=== PATIENT | male | born 1970 | race African-American/Black ===

== ENCOUNTER 2022-09-08 14:41 | Inpatient (IN) | payer MEDICARE, MEDICAID ==
[2022-09-08] MEDS ORDERED: Calcium Carbonate 500 MG ChewTAB PO PRN (15:21)
[2022-09-08] MEDS ORDERED: Senokot S 8.6-50 MG TAB PO PRN (15:21)
[2022-09-08] MEDS ORDERED: Ondansetron PF 4 MG/2 ML Vial IVP PRN (15:21)
[2022-09-08] MEDS ORDERED: Dextrose 50% Abboject 50 ML SYRINGE SLOW IVP PRN (15:45)
[2022-09-08] MEDS ORDERED: Dextrose 5% in Water 1,000 ML IV PRN (15:45)
[2022-09-08 16:03] LABS: CKMB 4.1 ng/mL (0-6.6)
[2022-09-08] MEDS ORDERED: Ipratropium/Albuterol 3 ML NEB NEB PRN (16:56)
[2022-09-08] MEDS ORDERED: hydrALAZINE 20 MG/ML VIAL SLOW IVP PRN (16:56)
[2022-09-08] MEDS ORDERED: Furosemide 20 MG/2 ML VIAL SLOW IVP SCH (17:00)
[2022-09-08] MEDS ORDERED: Diltiazem 125 MG/25 ML ONE (17:54)
[2022-09-08] MEDS ORDERED: Furosemide 20 MG/2 ML VIAL ONE (18:18)
[2022-09-08 20:19] VITALS: BMI 48.4
[2022-09-08] MEDS ORDERED: Metoprolol Tartrate 5 MG/5 ML VIAL IVP SCH (20:45)
[2022-09-08 21:11] LABS: Troponin I 0.166 ng/mL (< 0.028)
[2022-09-08 21:25] LABS: Anion Gap 14 mmol/L (10-20); BUN (Urea Nitrogen) 18 mg/dL (8.4-25.7); Calc. Creatinine Clearance 144 mL/min (70-130); Calcium 9.3 mg/dL (7.8-10.44); Carbon Dioxide 22 mmol/L (22-29); Chloride 103 mmol/L (98-107); Estimated GFR 70; Glucose 360 mg/dL (70-105); Magnesium 1.9 mg/dL (1.6-2.6); Sodium 135 mmol/L (136-145)
[2022-09-08] MEDS: HumaLOG 300 UNITS/3 ML VIAL SC PRN (21:44)
[2022-09-08] MEDS ORDERED: Magnesium 2 GM/50 ML(in water) 2 GM in Premix Bag 1 BAG IVPB SCH (22:00)
[2022-09-08] MEDS: Acetaminophen 325 MG TAB PO PRN (22:44)
[2022-09-08 23:09] LABS: SARS-CoV-2 NAA Rapid Test Not Detected (NotDetected)
[2022-09-08] MEDS: Diltiazem 125 MG in Sodium Chloride 0.9% 100 ML IVPB SCH (23:24)
[2022-09-08 23:25] LABS: Troponin I 0.161 ng/mL (< 0.028)
[2022-09-09] MEDS: Furosemide 20 MG/2 ML VIAL SLOW IVP SCH ×2 (05:22→13:59)
[2022-09-09] MEDS: HumaLOG 300 UNITS/3 ML VIAL SC PRN ×4 (05:44→21:09)
[2022-09-09] MEDS: Diltiazem 125 MG in Sodium Chloride 0.9% 100 ML IVPB SCH ×2 (05:45→18:35)
[2022-09-09 06:31] LABS: #Basophils 0.1 thou/uL (0.0-0.2); #Eosinphils 0.1 thou/uL (0.0-0.7); #Neutrophils 5.1 thou/uL (1.40-6.50); %Basophils 0.7 % (0.0-1.0); %Eosinophils 1.1 % (0.0-10.0); %Lymphocytes 32.3 % (21.0-51.0); %Neutrophils 54.9 % (42.0-75.0); Hemoglobin 13.8 g/dL (14.0-18.0); Mean Corpuscular HGB CONC 33.6 g/dL (32.0-36.0); Mean Corpuscular Hemoglobin 32.1 pg (27.0-31.0); Mean Corpuscular Volume 95.7 fl (78.0-98.0); Mean Platelet Volume 9.9 fL (7.4-10.4); Platelet Count 149 10x3/uL (130-400); RBC Distribution Width 12.6 % (11.5-14.5); Red Blood Cell (RBC) Count 4.28 mill/uL (4.70-6.10); White Blood Cell (WBC) Count 9.3 10x3/uL (4.8-10.8)
[2022-09-09 07:20] LABS: Hemoglobin A1c 10.1 % (4.0-6.0)
[2022-09-09 07:21] LABS: ALT (SGPT) 44 U/L (8-55); AST (SGOT) 24 U/L (5-34); Albumin 3.9 g/dL (3.5-5.0); Alkaline Phosphatase 100 U/L (40-110); BUN (Urea Nitrogen) 16 mg/dL (8.4-25.7); Bilirubin, Total 0.7 mg/dL (0.2-1.2); Calc. Creatinine Clearance 155 mL/min (70-130); Calcium 9.5 mg/dL (7.8-10.44); Carbon Dioxide 26 mmol/L (22-29); Cardiac Risk 2.6 (Less than 4.5); Chloride 101 mmol/L (98-107); Cholesterol 122 mg/dl (< 200 Desired); Estimated GFR 77; Globulin 2.8 g/dL (2.4-3.5); Glucose 234 mg/dL (70-105); HDL Cholesterol 47 mg/dL (>60 Neg Risk); LDL Cholesterol, Calculated 59 mg/dL; Potassium 3.5 mmol/L (3.5-5.1); Protein, Total 6.7 g/dL (6.0-8.3); Sodium 138 mmol/L (136-145); Triglycerides 80 mg/dL (Less than 150)
[2022-09-09 13:20] LABS: Anion Gap 15 mmol/L (10-20)
[2022-09-09] MEDS ORDERED: Carvedilol 6.25 MG TAB PO SCH (14:15)
[2022-09-09] MEDS ORDERED: Metoprolol Tartrate 25 MG TAB PO SCH (14:15)
[2022-09-09] MEDS ORDERED: Furosemide 20 MG/2 ML VIAL SLOW IVP SCH (16:00)
[2022-09-09] MEDS: Carvedilol 6.25 MG TAB PO SCH (16:34)
[2022-09-09] MEDS: Dronedarone HCl 400 MG TAB PO SCH (16:34)
[2022-09-09] MEDS ORDERED: Metoprolol Tartrate 50 MG TAB PO SCH (21:00)
[2022-09-09] MEDS: Insulin Glargine 30 UNITS/0.3 ML VIAL SC SCH (21:08)
[2022-09-09] MEDS: Atorvastatin Calcium 40 MG TAB PO SCH (21:08)
[2022-09-10] MEDS: Furosemide 20 MG/2 ML VIAL SLOW IVP SCH (06:01)
[2022-09-10] MEDS: HumaLOG 300 UNITS/3 ML VIAL SC PRN ×4 (06:02→21:06)
[2022-09-10 07:12] LABS: #Eosinphils 0.1 thou/uL (0.0-0.7); #Lymphocytes 3.5 thou/uL (1.20-3.40); #Neutrophils 6.1 thou/uL (1.40-6.50); %Basophils 0.4 % (0.0-1.0); %Eosinophils 1.2 % (0.0-10.0); %Lymphocytes 32.2 % (21.0-51.0); %Monocytes 9.6 % (0.0-10.0); %Neutrophils 56.6 % (42.0-75.0); Mean Corpuscular HGB CONC 33.3 g/dL (32.0-36.0); Mean Corpuscular Hemoglobin 32.2 pg (27.0-31.0); Mean Corpuscular Volume 96.5 fl (78.0-98.0); Mean Platelet Volume 10.1 fL (7.4-10.4); Platelet Count 163 10x3/uL (130-400); RBC Distribution Width 12.7 % (11.5-14.5); Red Blood Cell (RBC) Count 4.36 mill/uL (4.70-6.10); White Blood Cell (WBC) Count 10.7 10x3/uL (4.8-10.8)
[2022-09-10 07:33] LABS: Anion Gap 17 mmol/L (10-20); BUN (Urea Nitrogen) 23 mg/dL (8.4-25.7); Calc. Creatinine Clearance 101 mL/min (70-130); Calcium 9.2 mg/dL (7.8-10.44); Carbon Dioxide 25 mmol/L (22-29); Chloride 101 mmol/L (98-107); Estimated GFR 46; Glucose 167 mg/dL (70-105); Magnesium 1.9 mg/dL (1.6-2.6); Potassium 3.9 mmol/L (3.5-5.1); Sodium 139 mmol/L (136-145)
[2022-09-10] MEDS: Dronedarone HCl 400 MG TAB PO SCH ×2 (07:33→17:29)
[2022-09-10] MEDS: Carvedilol 6.25 MG TAB PO SCH ×2 (07:33→17:29)
[2022-09-10 07:48] LABS: Free T4 (Free Thyroxine) 1.25 ng/dL (0.70-1.48); Thyroid Stimulating Hormone 2.025 uIU/mL (0.35-4.94)
[2022-09-10] MEDS: Insulin Glargine 30 UNITS/0.3 ML VIAL SC SCH ×2 (08:32→21:06)
[2022-09-10] MEDS: hydrALAZINE 25 MG TAB PO SCH ×2 (15:50→20:07)
[2022-09-10 16:11] LABS: Hemoglobin 13.9 g/dL (14.0-18.0)
[2022-09-10 16:19] LABS: Bacteria/HPF None Seen HPF (None Seen); Bilirubin Negative (Negative); Blood, Urine 3+ (Negative); CAUTI Indications for Culture Acute Hematuria; Glucose, Urine (Dipstick) 70 mg/dL (Negative); Ketone, Urine Negative (Negative); Leukocyte Negative Leu/uL (Negative); Nitrite Negative (Negative); Protein, Urine (Dipstick) 50 mg/dL (Neg-Trace); RBC/HPF Greater than 50 HPF (0-3); Specific Gravity, Urine 1.021 (1.002-1.036); Squamous Epithelial 0-3 HPF (0-3); Urobilinogen Normal mg/dL (Less than 2); WBC/HPF 0-3 HPF (0-3); pH, Urine 5.5 (5.0-9.0)
[2022-09-10 16:20] LABS: Clarity Cloudy (Clear)
[2022-09-10 16:21] LABS: Urine Culture Reflex No No
[2022-09-10] MEDS: Tamsulosin HCl 0.4 MG CAP PO SCH (20:07)
[2022-09-10] MEDS: Atorvastatin Calcium 40 MG TAB PO SCH (20:07)
[2022-09-11] MEDS: Diltiazem 125 MG in Sodium Chloride 0.9% 100 ML IVPB SCH ×2 (02:19→10:00)
[2022-09-11 04:22] LABS: #Eosinphils 0.1 thou/uL (0.0-0.7); #Lymphocytes 2.3 thou/uL (1.20-3.40); #Monocytes 0.9 thou/uL (0.11-0.59); #Neutrophils 4.6 thou/uL (1.40-6.50); %Basophils 0.4 % (0.0-1.0); %Eosinophils 0.9 % (0.0-10.0); %Lymphocytes 29.1 % (21.0-51.0); %Monocytes 10.8 % (0.0-10.0); %Neutrophils 58.8 % (42.0-75.0); Hemoglobin 13.5 g/dL (14.0-18.0); Mean Corpuscular HGB CONC 32.8 g/dL (32.0-36.0); Mean Corpuscular Hemoglobin 31.4 pg (27.0-31.0); Mean Corpuscular Volume 95.6 fl (78.0-98.0); Mean Platelet Volume 9.7 fL (7.4-10.4); Platelet Count 154 10x3/uL (130-400); RBC Distribution Width 12.5 % (11.5-14.5); White Blood Cell (WBC) Count 7.8 10x3/uL (4.8-10.8)
[2022-09-11 04:47] LABS: Anion Gap 12 mmol/L (10-20); BUN (Urea Nitrogen) 26 mg/dL (8.4-25.7); Calc. Creatinine Clearance 121 mL/min (70-130); Calcium 8.6 mg/dL (7.8-10.44); Carbon Dioxide 25 mmol/L (22-29); Chloride 100 mmol/L (98-107); Estimated GFR 56; Glucose 295 mg/dL (70-105); Magnesium 1.9 mg/dL (1.6-2.6); Potassium 3.9 mmol/L (3.5-5.1); Sodium 133 mmol/L (136-145)
[2022-09-11] MEDS: Carvedilol 6.25 MG TAB PO SCH ×2 (06:08→16:11)
[2022-09-11] MEDS: Apixaban 5 MG TAB PO SCH ×2 (10:00→21:25)
[2022-09-11] MEDS ORDERED: Lidocaine 1% PF 5 ML VIAL ONE (10:00)
[2022-09-11] MEDS ORDERED: PROPOFOL 200 MG/20 ML VIAL ONE (10:00)
[2022-09-11] MEDS: HumaLOG 300 UNITS/3 ML VIAL SC PRN ×3 (11:07→21:27)
[2022-09-11] MEDS: hydrALAZINE 25 MG TAB PO SCH ×3 (11:08→21:25)
[2022-09-11] MEDS: Dronedarone HCl 400 MG TAB PO SCH ×2 (11:08→16:12)
[2022-09-11] MEDS: Insulin Glargine 30 UNITS/0.3 ML VIAL SC SCH ×2 (11:09→21:27)
[2022-09-11] MEDS ORDERED: Furosemide 20 MG/2 ML VIAL SLOW IVP SCH (11:59)
[2022-09-11] MEDS ORDERED: Magnesium 2 GM/50 ML(in water) 2 GM in Premix Bag 1 BAG IVPB SCH (12:00)
[2022-09-11] MEDS ORDERED: Insulin Glargine 30 UNITS/0.3 ML VIAL SC SCH (12:00)
[2022-09-11] MEDS ORDERED: Potassium Chloride 20 MEQ TAB PO SCH (12:00)
[2022-09-11] MEDS: Acetaminophen 325 MG TAB PO PRN (16:12)
[2022-09-11] MEDS ORDERED: FLU VACC QS2022-23(6MOS UP)/PF 60 MCG/0.5 ML SYRINGE IM ONE (20:45)
[2022-09-11] MEDS: Atorvastatin Calcium 40 MG TAB PO SCH (21:25)
[2022-09-11] MEDS: Furosemide 20 MG/2 ML VIAL SLOW IVP SCH (21:25)
[2022-09-11] MEDS: Tamsulosin HCl 0.4 MG CAP PO SCH (21:26)
[2022-09-12 01:25] LABS: Bacteria/HPF 2+ HPF (None Seen); Bilirubin Negative (Negative); Blood, Urine 1+ (Negative); CAUTI Indications for Culture Acute Hematuria; Clarity Turbid (Clear); Glucose, Urine (Dipstick) Normal (Negative); Ketone, Urine Negative (Negative); Leukocyte Negative Leu/uL (Negative); Nitrite Negative (Negative); Protein, Urine (Dipstick) 50 mg/dL (Neg-Trace); RBC/HPF 21-50 HPF (0-3); Specific Gravity, Urine 1.017 (1.002-1.036); Squamous Epithelial 0-3 HPF (0-3); Urobilinogen Normal mg/dL (Less than 2)
[2022-09-12 01:26] LABS: Urine Culture Reflex No No
[2022-09-12 04:49] LABS: #Eosinphils 0.1 thou/uL (0.0-0.7); #Lymphocytes 2.2 thou/uL (1.20-3.40); #Monocytes 1.2 thou/uL (0.11-0.59); %Basophils 0.1 % (0.0-1.0); %Eosinophils 0.8 % (0.0-10.0); %Lymphocytes 23.6 % (21.0-51.0); %Monocytes 12.4 % (0.0-10.0); %Neutrophils 63.1 % (42.0-75.0); Hemoglobin 13.4 g/dL (14.0-18.0); Mean Corpuscular HGB CONC 33.3 g/dL (32.0-36.0); Mean Corpuscular Hemoglobin 31.8 pg (27.0-31.0); Mean Corpuscular Volume 95.5 fl (78.0-98.0); Mean Platelet Volume 10.7 fL (7.4-10.4); Platelet Count 165 10x3/uL (130-400); RBC Distribution Width 12.5 % (11.5-14.5); Red Blood Cell (RBC) Count 4.21 mill/uL (4.70-6.10); White Blood Cell (WBC) Count 9.5 10x3/uL (4.8-10.8)
[2022-09-12] MEDS: HumaLOG 300 UNITS/3 ML VIAL SC PRN ×2 (05:56→20:42)
[2022-09-12 07:24] LABS: Chloride 101 mmol/L (98-107); Potassium 4.2 mmol/L (3.5-5.1); Sodium 138 mmol/L (136-145)
[2022-09-12 07:25] LABS: Calcium 9.2 mg/dL (7.8-10.44)
[2022-09-12 07:26] LABS: Glucose 236 mg/dL (70-105)
[2022-09-12 07:27] LABS: Anion Gap 16 mmol/L (10-20); Carbon Dioxide 25 mmol/L (22-29)
[2022-09-12 07:30] LABS: BUN (Urea Nitrogen) 35 mg/dL (8.4-25.7)
[2022-09-12 07:31] LABS: Magnesium 2.3 mg/dL (1.6-2.6)
[2022-09-12 07:34] LABS: Calc. Creatinine Clearance 79 mL/min (70-130); Estimated GFR 33
[2022-09-12] MEDS: Dronedarone HCl 400 MG TAB PO SCH ×2 (09:32→18:22)
[2022-09-12] MEDS: hydrALAZINE 25 MG TAB PO SCH ×3 (09:32→20:41)
[2022-09-12] MEDS: Insulin Glargine 30 UNITS/0.3 ML VIAL SC SCH ×2 (09:33→20:42)
[2022-09-12] MEDS: Apixaban 5 MG TAB PO SCH ×2 (09:33→20:41)
[2022-09-12] MEDS: Furosemide 20 MG/2 ML VIAL SLOW IVP SCH (09:45)
[2022-09-12] MEDS: Carvedilol 6.25 MG TAB PO SCH ×2 (09:45→18:22)
[2022-09-12] MEDS ORDERED: hydrALAZINE 20 MG/ML VIAL SLOW IVP PRN (10:33)
[2022-09-12] MEDS ORDERED: Insulin Glargine 30 UNITS/0.3 ML VIAL SC SCH ×2 (10:38→10:45)
[2022-09-12] MEDS: Acetaminophen 325 MG TAB PO PRN (12:44)
[2022-09-12] MEDS: Benzonatate 100 MG CAP PO SCH ×2 (14:17→20:41)
[2022-09-12] MEDS: Atorvastatin Calcium 40 MG TAB PO SCH (20:41)
[2022-09-12] MEDS: Tamsulosin HCl 0.4 MG CAP PO SCH (20:43)
[2022-09-13 05:08] LABS: #Basophils 0.1 thou/uL (0.0-0.2); #Eosinphils 0.1 thou/uL (0.0-0.7); #Lymphocytes 2.7 thou/uL (1.20-3.40); #Monocytes 1.1 thou/uL (0.11-0.59); #Neutrophils 4.8 thou/uL (1.40-6.50); %Basophils 0.6 % (0.0-1.0); %Eosinophils 1.5 % (0.0-10.0); %Lymphocytes 30.9 % (21.0-51.0); %Monocytes 12.3 % (0.0-10.0); %Neutrophils 54.7 % (42.0-75.0); Hemoglobin 13.3 g/dL (14.0-18.0); Mean Corpuscular HGB CONC 33.3 g/dL (32.0-36.0); Mean Corpuscular Hemoglobin 31.8 pg (27.0-31.0); Mean Corpuscular Volume 95.5 fl (78.0-98.0); Mean Platelet Volume 10.1 fL (7.4-10.4); Platelet Count 168 10x3/uL (130-400); RBC Distribution Width 12.4 % (11.5-14.5); Red Blood Cell (RBC) Count 4.17 mill/uL (4.70-6.10); White Blood Cell (WBC) Count 8.8 10x3/uL (4.8-10.8)
[2022-09-13 05:34] LABS: Anion Gap 11 mmol/L (10-20); BUN (Urea Nitrogen) 31 mg/dL (8.4-25.7); Calc. Creatinine Clearance 117 mL/min (70-130); Calcium 8.8 mg/dL (7.8-10.44); Carbon Dioxide 25 mmol/L (22-29); Chloride 99 mmol/L (98-107); Estimated GFR 53; Glucose 226 mg/dL (70-105); Magnesium 2.1 mg/dL (1.6-2.6); Potassium 3.8 mmol/L (3.5-5.1); Sodium 131 mmol/L (136-145)
[2022-09-13] MEDS: HumaLOG 300 UNITS/3 ML VIAL SC PRN (05:39)
[2022-09-13 09:26] VITALS: TEMP 97.8
[2022-09-13] MEDS: Insulin Glargine 30 UNITS/0.3 ML VIAL SC SCH (09:52)
[2022-09-13] MEDS: Benzonatate 100 MG CAP PO SCH ×2 (09:54→14:07)
[2022-09-13] MEDS: Apixaban 5 MG TAB PO SCH (09:55)
[2022-09-13] MEDS: Carvedilol 6.25 MG TAB PO SCH ×2 (09:55→17:22)
[2022-09-13] MEDS: Dronedarone HCl 400 MG TAB PO SCH ×2 (09:55→17:25)
[2022-09-13] MEDS: hydrALAZINE 25 MG TAB PO SCH ×2 (09:58→14:07)
[2022-09-13 17:26] VITALS: BP 146/76
== END 2022-09-13 17:45 | disposition home or self-care (01) | DRG 280 ==
LOC: ERS 14:41 → SUATTDRO 14:41 → ERHOLD 15:28 → CCU 19:52 → 2NO 09-11 20:16
PROVIDERS: ADMIT Internal Medicine; ATTEND Internal Medicine
PROC: B24BZZ4 Ultrasonography of Heart with Aorta, Transesophageal (ICD-10-PCS; principal; 2022-09-11)
PROC: 5A2204Z Restoration of Cardiac Rhythm, Single (ICD-10-PCS; 2022-09-12)
DX: I11.0 Hypertensive heart disease with heart failure (principal); I50.33 Acute on chronic diastolic (congestive) heart failure; I21.A1 Myocardial infarction type 2; I48.92 Unspecified atrial flutter; Z68.42 Body mass index [BMI] 45.0-49.9, adult; N17.9 Acute kidney failure, unspecified; Z20.822 Contact with and (suspected) exposure to COVID-19; E78.5 Hyperlipidemia, unspecified; E66.9 Obesity, unspecified; G47.33 Obstructive sleep apnea (adult) (pediatric); F17.210 Nicotine dependence, cigarettes, uncomplicated; R31.0 Gross hematuria; E11.65 Type 2 diabetes mellitus with hyperglycemia; Z79.4 Long term (current) use of insulin; Z79.01 Long term (current) use of anticoagulants; Z79.899 Other long term (current) drug therapy; Z88.8 Allergy status to other drugs, medicaments and biological substances
CPT/HCPCS: 36415; 36416; 71045; 80048; 80053; 80061; 81001; 82553; 83036; 83735; 83880; 84439; 84443; 84481; 84484; 85025; 93005; 93010; 93306; 93312; 94660; 96365; 96366; J1650; J1815; J1940; J2405; J2704; J3475; J3490; U0002